=== PATIENT | male | born 1950 | race Caucasian/White ===

== ENCOUNTER 2023-07-04 06:04 | Emergency (ER) | payer OTHER ==
--- OUTSIDE RECORDS SUMMARY | 2023-07-04 06:06 | XMS REPORT | Continuity of Care Document ---
:1950 Author Organization [facility] t Address [address] [place] [address] [place] [id number] Care Team Providers Name Role Phone TAHIR JOSHUAFlowerESTELLE Primary Care Physician Unavailable JOHN SULTANA Attending Clinician Unavailable ALVERTO WYNN Attending Clinician Unavailable ALVERTO WYNN Attending Clinician Unavailable Nurse, Ang Db Attending Clinician Unavailable Wood Lawton MD Attending Clinician WOOD LAWTON Attending Clinician Unavailable WOOD LAWTON Attending Clinician Unavailable Doctor Unassigned, [place] Attending Clinician Unavailable SIERRA DIEHL Attending Clinician Unavailable John Sultana MD Attending Clinician Only, Adc Test Attending Clinician Unavailable Pob, [facility]c Lab Main Attending Clinician Unavailable JOHN SULTANA Admitting Clinician Unavailable John Sultana MD Admitting Clinician Payers Payer Name Policy Type Policy Number Effective Date Expiration Date S emi [employer] MEDICARE ADV [id number] 2019 00:00:00 Problems This patient has no known problems. Allergies, Adverse Reactions, Alerts Allergy Allergy Status Severity Reaction(s) Onset Inactive Treating Comm ents Source Name Type Date Date Clinician NO KNOWN Drug Active Univers ALLERGIE Class ity of [facility] Social History Social Habit Start Date Stop Date Quantity Comments Source [facility] Sexual orientation Univer sity [facility] History of Social 2023-03-29 2023-03-29 Univers ity of function 00:00:00 00:00:00 [facility] Tobacco use and 2023-03-29 2023-03-29 Smokeless Universit y of exposure 00:00:00 00:00:00 tobacco non-user [facility] Exposure to 2020-03-31 2020-04-30 Not sure [facility]-CoV-2 (event) 00:00:00 11:05:00 [facility] Sex Ass[birth year] Universit y of 00:00:00 00:00:00 [facility] Smoking Status Start Date Stop Date Source Unknown if ever smoked Universit y of [facility] Never smoked tobacco [facility] Medications Ordered Filled Start Stop Current Ordering Indication Dosage Frequency Signature Comments Components Source Medication Medication Date Date Medication? Clinician (SIG) Name Name triamcinolo 2022- No [id number] 40mg Univers ne 04-19 9108 ity of acetonide 21:30: 20:17 [place] (KENALOG) 00 :00 Medical injection Branch 40 mg triamcinolo 2022-0 2022- No [id number] 40mg 40 mg, Univers ne 04-19 9108 Intramuscu ity of acetonide 21:30: 20:17 [place] ONCE, [place] (KENALOG[place] 00 :00 1 dose, On Medi ginny injection Mon Branch 40 mg 04/19/23 at 1630, Routine triamcinolo 2022-0 2022- No [id number] 40mg Univers ne 04-19 9108 ity of acetonide 21:30: 20:17 [place] (KENALOG) 00 :00 Medical injection Branch 40 mg triamcinolo 2022-0 3- No [id number] 40mg 40 mg, Univers ne 04-19 9108 Intramuscu ity of acetonide 21:30: 20:17 [place], ONCE, [place] (KENALOG) 00 :00 1 dose, On Medi ginny injection Mon Branch 40 mg 04/19/23 at 1630, Routine methylPREDN 3-0 Yes [id number] 84mg Take 21 Univers ISolone 7-31 tablets by ity of (MEDROL, 00:00: mouth [place] FERNANDO,) 4 mg 00 SEE-INSTRU Med ical tablets CTIONS. Branch follow package directions methylPREDN 3-0 Yes [id number] 84mg Take 21 Univers ISolone 7-31 tablets by ity of (MEDROL, 00:00: mouth [place] FERNANDO,) 4 mg 00 SEE-INSTRU Med ical tablets CTIONS. Branch follow package directions methylPREDN 2023-0 Yes [id number] 84mg Take 21 Univers ISolone 7-31 tablets by ity of (MEDROL, 00:00: mouth [place] FERNANDO,) 4 mg 00 SEE-INSTRU Med ical tablets CTIONS. Branch follow package directions methylPREDN 2023-0 Yes [id number] 84mg Take 21 Univers ISolone 7-31 tablets by ity of (MEDROL, 00:00: mouth [place] FERNANDO,) 4 mg 00 SEE-INSTRU Med ical tablets CTIONS. Branch follow package directions methylPREDN 2023-0 Yes [id number] 84mg Take 21 Univers ISolone 7-31 tablets by ity of (MEDROL, 00:00: mouth [place] FERNANDO,) 4 mg 00 SEE-INSTRU Med ical tablets CTIONS. Branch follow package directions methylPREDN 2023-0 Yes [id number] 84mg Take 21 Univers ISolone 7-31 tablets by ity of (MEDROL, 00:00: mouth [place] FERNANDO,) 4 mg 00 SEE-INSTRU Med ical tablets CTIONS. Branch follow package directions methylPREDN 2023-0 Yes [id number] 84mg Take 21 Univers ISolone 7-31 4105 tablets by ity of (MEDROL, 00:00: mouth [place] FERNANDO,) 4 mg 00 SEE-INSTRU Med ical tablets CTIONS. Branch follow package directions methylPREDN 2023-0 Yes [id number] 84mg Take 21 Univers ISolone 7-31 4105 tablets by ity of (MEDROL, 00:00: mouth [place] FERNANDO,) 4 mg 00 SEE-INSTRU Med ical tablets CTIONS. Branch follow package directions methylPREDN 2023-0 Yes [id number] 84mg Take 21 Univers ISolone 7-31 4105 tablets by ity of (MEDROL, 00:00: mouth [place] FERNANDO,) 4 mg 00 SEE-INSTRU Med ical tablets CTIONS. Branch follow package directions methylPREDN 2023-0 Yes [id number] 84mg Take 21 Univers ISolone 7-31 4105 tablets by ity of (MEDROL, 00:00: mouth [place] FERNANDO,) 4 mg 00 SEE-INSTRU Med ical tablets CTIONS. Branch follow package directions methylPREDN 2023-0 Yes [id number] 84mg Take 21 Univers ISolone 7-31 4105 tablets by ity of (MEDROL, 00:00: mouth [place] FERNANDO,) 4 mg 00 SEE-INSTRU Med ical tablets CTIONS. Branch follow package directions methylPREDN 0 Yes [id number] 84mg Take 21 Univers ISolone 7-31 4105 tablets by ity of (MEDROL, 00:00: mouth [place] FERNANDO,) 4 mg 00 SEE-INSTRU Med ical tablets CTIONS. Branch follow package directions simvastatin 2019-0 Yes 20mg Take 20 mg Univers 20 mg 05-01 by mouth ity of tablet 20:39: at [place] 14 bedtime. Medical Branch gabapentin 0 Yes 600mg Take 600 Un jordi 600 mg 05-01 mg by ity of tablet 20:39: mouth [place] 14 daily. Medical Branch water for 0 Yes PRN, Univers irrigation 05-01 Starting ity o f irrigation 19:55: 05/01/20 [place] solution 00 at 1455, Medical Until Branch Discontinu ed, Routine, Intra-op sodium 2019-0 Yes PRN, Univers chloride 05-01 Starting ity of (NS) 19:55: 05/01/20 [place] injection 00 at 1455, Medica l Until Branch Discontinu ed, Routine, Intra-op gentamicin 2019-0 Yes PRN, Univers injection 05-01 Starting ity of 19:54: 05/01/20 [place] 00 at 1454, Medical Until Branch Discontinu ed, MONICO, Intra-op neomycin-po 2019-0 Yes PRN, Univer s lymyxin-dex 05-01 Starting ity of amethasone 19:54: 05/01/20 [place] (MAXITROL) 00 at 1454, Medic al 3.5 Until Branch mg/g-10,000 Discontinu unit/g-0.1 ed, % Routine, ophthalmic Intra-op ointment EPINEPHrine 2019-0 Yes PRN, Univer s 1:1,000 (1 05-01 Starting ity o f mg/mL) 19:53: 05/01/20 [place] (ADRENALIN) 00 at 1453, Medi ginny injection Until Branch Discontinu ed, Routine, Intra-op DUOVISC 2019-0 Yes PRN, Univers (DUOVISC 05-01 Starting ity of VISCO 19:53: 05/01/20 [place] ELASTIC) 3 00 at 1453, Medic al %-4 %(0.5 Until Branch mL) 1 % Discontinu (0.55 mL) ed, intraocular Routine, injection Intra-op dexamethaso 2020-0 Yes PRN, Univer s ne 05-01 Starting ity of (DECADRON 19:53: 05/01/[place] PHOSPHATE) 00 at 1453, Medic al injection Until Branch Discontinu ed, Routine, Intra-op ceFAZolin 2020-0 Yes PRN, Univers (ANCEF) 05-01 Starting ity of injection 19:53: 05/01/[place] 00 at 1453, Medical Until Branch Discontinu ed, MONICO, Intra-op carbachoL 2019-0 Yes PRN, Univers (MIOSTAT) 05-01 Starting ity of 0.01 % 19:53: 05/01/20 [place] intraocular 00 at 1453, Medi ginny injection Until Branch Discontinu ed, Routine, Intra-op balanced 2019-0 Yes PRN, Univers salt irrig 05-01 Starting ity o f soln comb1 19:52: 05/01/20 [place] (BSS PLUS) 00 at 1452, Medic al ophthalmic Until Branch solution Discontinu 500 mL bag ed, Routine, Intra-op Hyaluronida 2019-0 Yes PRN, [facility] s se, Human 05-01 Starting ity of Recomb. 19:39: 05/01/20 [place] (HYLENEX[place] 00 at 1439, Medica l injection Until Branch Discontinu ed, Routine, Intra-op eye block 2019-0 Yes PRN, Univers syringe 11 05-01 Starting ity o f mL 19:39: 05/01/20 [place] 00 at 1439, Medical Until Branch Discontinu ed, Intra-op mydriatic 0 2020- No .5mL 0.5 mL, Univ ers #5 05-01 Right Eye, ity of ophthalmic 17:45: 17:39 ONCE, 1 Giancar[place] as solution 00 :00 dose, Wed Medica l 0.5 mL 05/01/20 at Branch syringe 1245, Routine lactated 0 2020- No 1000mL at 20 Unive rs ringers IV 05-01 mL/hr, ity of infusion 17:45: 17:44 1,000 mL, [place] as 1,000 mL 00 :00 IV Medical Infusion, Branch ONCE, 1 dose, 05/01/20 at 1245, Routine, DSU Pre-op simvastatin 2020-0 Yes 20mg Take 20 mg Univers 20 mg 9-02 by mouth ity of tablet 15:39: at [place] 14 bedtime. Medical Branch gabapentin 2020-0 Yes 600mg Take 600 Un jordi 600 mg 9-02 mg by ity of tablet 15:39: mouth [place] 14 daily. Medical Branch simvastatin 2020-0 Yes 20mg Take 20 mg Univers 20 mg 9-02 by mouth ity of tablet 15:39: at [place] 14 bedtime. Medical Branch gabapentin 2020-0 Yes 600mg Take 600 Un jordi 600 mg 9-02 mg by ity of tablet 15:39: mouth [place] 14 daily. Medical Branch simvastatin 2020-0 Yes 20mg Take 20 mg Univers 20 mg 9-02 by mouth ity of tablet 15:39: at [place] 14 bedtime. Medical Branch gabapentin 2020-0 Yes 600mg Take 600 Un jordi 600 mg 9-02 mg by ity of tablet 15:39: mouth [place] 14 daily. Medical Branch simvastatin 2020-0 Yes 20mg Take 20 mg Univers 20 mg 9-02 by mouth ity of tablet 15:39: at [place] 14 bedtime. Medical Branch gabapentin 2020-0 Yes 600mg Take 600 Un jordi 600 mg 9-02 mg by ity of tablet 15:39: mouth [place] 14 daily. Medical Branch simvastatin 2020-0 Yes 20mg Take 20 mg Univers 20 mg 9-02 by mouth ity of tablet 15:39: at [place] 14 bedtime. Medical Branch gabapentin 2020-0 Yes 600mg Take 600 Un jordi 600 mg 9-02 mg by ity of tablet 15:39: mouth [place] 14 daily. Medical Branch simvastatin 2020-0 Yes 20mg Take 20 mg Univers 20 mg 9-02 by mouth ity of tablet 15:39: at [place] 14 bedtime. Medical Branch gabapentin 2020-0 Yes 600mg Take 600 Un jordi 600 mg 9-02 mg by ity of tablet 15:39: mouth [place] 14 daily. Medical Branch simvastatin 2020-0 Yes 20mg Take 20 mg Univers 20 mg 9-02 by mouth ity of tablet 15:39: at [place] 14 bedtime. Medical Branch gabapentin 2020-0 Yes 600mg Take 600 Un jordi 600 mg 9-02 mg by ity of tablet 15:39: mouth [place] 14 daily. Medical Branch simvastatin 2020-0 Yes 20mg Take 20 mg Univers 20 mg 9-02 by mouth ity of tablet 15:39: at [place] 14 bedtime. Medical Branch gabapentin 2020-0 Yes 600mg Take 600 Un jordi 600 mg 9-02 mg by ity of tablet 15:39: mouth [place] 14 daily. Medical Branch simvastatin 2020-0 Yes 20mg Take 20 mg Univers 20 mg 9-02 by mouth ity of tablet 15:39: at [place] 14 bedtime. Medical Branch gabapentin 2020-0 Yes 600mg Take 600 Un jordi 600 mg 9-02 mg by ity of tablet 15:39: mouth [place] 14 daily. Medical Branch simvastatin 2020-0 Yes 20mg Take 20 mg Univers 20 mg 9-02 by mouth ity of tablet 15:39: at [place] 14 bedtime. Medical Branch gabapentin 2020-0 Yes 600mg Take 600 Un jordi 600 mg 9-02 mg by ity of tablet 15:39: mouth [place] 14 daily. Medical Branch simvastatin 2020-0 Yes 20mg Take 20 mg Univers 20 mg 9-02 by mouth ity of tablet 15:39: at [place] 14 bedtime. Medical Branch gabapentin 2020-0 Yes 600mg Take 600 Un jordi 600 mg 9-02 mg by ity of tablet 15:39: mouth [place] 14 daily. Medical Branch simvastatin 2020-0 Yes 20mg Take 20 mg Univers 20 mg 9-02 by mouth ity of tablet 15:39: at [place] 14 bedtime. Medical Branch gabapentin 2020-0 Yes 600mg Take 600 Un jordi 600 mg 9-02 mg by ity of tablet 15:39: mouth [place] 14 daily. Medical Branch simvastatin 2020-0 Yes 20mg Take 20 mg Univers 20 mg 9-02 by mouth ity of tablet 15:39: at [place] 14 bedtime. Medical Branch gabapentin 2020-0 Yes 600mg Take 600 Un jordi 600 mg 9-02 mg by ity of tablet 15:39: mouth [place] 14 daily. Medical Branch simvastatin 2020-0 Yes 20mg Take 20 mg Univers 20 mg 9-02 by mouth ity of tablet 15:39: at [place] 14 bedtime. Medical Branch gabapentin 2020-0 Yes 600mg Take 600 Un jordi 600 mg 9-02 mg by ity of tablet 15:39: mouth [place] 14 daily. Medical Branch gabapentin 2020-0 Yes 600mg Take 600 Un jordi 600 mg 8-31 mg by ity of tablet 15:32: mouth [place] 22 daily. Medical Branch gabapentin 2020-0 Yes 600mg Take 600 Un jordi 600 mg 8-31 mg by ity of tablet 15:32: mouth [place] 22 daily. Medical Branch simvastatin 2020-0 Yes 20mg Take 20 mg Univers 20 mg 8-31 by mouth ity of tablet 15:29: at [place] 26 bedtime. Medical Branch simvastatin 2020-0 Yes 20mg Take 20 mg Univers 20 mg 8-31 by mouth ity of tablet 15:29: at [place] 26 bedtime. [facility] Branch Immunizations Ordered Filled Date Status Comments Source Immunization Name Immunization Name SARS-COV-2 COVID-19 2020-10-30 Completed Unive rsity of PFIZER VACCINE 00:00:00 [facility] SARS-COV-2 COVID-19 2020-10-30 Completed Unive rsity of PFIZER VACCINE 00:00:00 [facility] SARS-COV-2 COVID-19 2020-10-30 Completed Unive rsity of PFIZER VACCINE 00:00:00 [facility] SARS-COV-2 COVID-19 2020-10-30 Completed Unive rsity of PFIZER VACCINE 00:00:00 [facility] SARS-COV-2 COVID-19 2020-10-30 Completed Unive rsity of PFIZER VACCINE 00:00:00 [facility] SARS-COV-2 COVID-19 2020-10-30 Completed Unive rsity of PFIZER VACCINE 00:00:00 [facility] SARS-COV-2 COVID-19 2020-10-09 Completed Unive rsity of PFIZER VACCINE 00:00:00 [facility] SARS-COV-2 COVID-19 2020-10-09 Completed Unive rsity of PFIZER VACCINE 00:00:00 [facility] SARS-COV-2 COVID-19 2020-10-09 Completed Unive rsity of PFIZER VACCINE 00:00:00 [facility] SARS-COV-2 COVID-19 2020-10-09 Completed Unive rsity of PFIZER VACCINE 00:00:00 [facility] SARS-COV-2 COVID-19 2020-10-09 Completed Unive rsity of PFIZER VACCINE 00:00:00 [place] Medi ginny Branch SARS-COV-2 COVID-19 2020-10-09 Completed Unive rsity of PFIZER VACCINE 00:00:00 [facility] Branch SARS-COV-2 COVID-19 Unknown Completed Unive rsity of PFIZER VACCINE [facility] Branch SARS-COV-2 COVID-19 Unknown Completed Unive rsity of PFIZER VACCINE [facility] Branch SARS-COV-2 COVID-19 Unknown Completed Unive rsity of PFIZER VACCINE [facility] Branch SARS-COV-2 COVID-19 Unknown Completed Unive rsity of PFIZER VACCINE [facility] Branch SARS-COV-2 COVID-19 Unknown Completed Unive rsity of PFIZER VACCINE [facility] Branch SARS-COV-2 COVID-19 Unknown Completed Unive rsity of PFIZER VACCINE [facility] Branch Influenza Virus Unknown Completed Universit y of Vaccine,quad [place] Medica l Im,preserve Free Branch 65+ (FLUAD) SARS-COV-2 COVID-19 Unknown Completed Unive rsity of PFIZER VACCINE [facility] Branch SARS-COV-2 COVID-19 Unknown Completed Unive rsity of PFIZER VACCINE [facility] Branch Influenza Virus Unknown Completed Universit y of Vaccine,quad [place] Medica l Im,preserve Free Branch 65+ (FLUAD) SARS-COV-2 COVID-19 Unknown Completed Unive rsity of PFIZER VACCINE [facility] Branch SARS-COV-2 COVID-19 Unknown Completed Unive rsity of PFIZER VACCINE [facility] Branch Influenza Virus Unknown Completed Universit y of Vaccine,quad [place] Medica l Im,preserve Free Branch 65+ (FLUAD) SARS-COV-2 COVID-19 Unknown Completed Unive rsity of PFIZER VACCINE [facility] Branch SARS-COV-2 COVID-19 Unknown Completed Unive rsity of PFIZER VACCINE [facility] Branch Influenza Virus Unknown Completed Universit y of Vaccine,quad [place] Medica l Im,preserve Free Branch 65+ (FLUAD) SARS-COV-2 COVID-19 Unknown Completed Unive rsity of PFIZER VACCINE [facility] Branch SARS-COV-2 COVID-19 Unknown Completed Unive rsity of PFIZER VACCINE [facility] Branch Influenza Virus Unknown Completed Universit y of Vaccine,quad [place] Medica l Im,preserve Free Branch 65+ (FLUAD) Vital Signs Vital Name Observation Time Observation Value Comments Source Systolic blood 2023-06-16 20:43:00 138 mm[Hg] Univer sity of pressure [place] [facility] Diastolic blood 2023-06-16 20:43:00 84 mm[Hg] Unive rsity of pressure [place] [facility] Heart rate 2023-06-16 20:43:00 71 /min Universi ty of [place] [facility] Body height 2023-06-16 20:43:00 241.3 cm Universi ty of [place] [facility] Body weight 2023-06-16 20:43:00 78.245 kg Universi ty of [place] [facility] BMI 2023-06-16 20:43:00 13.44 kg/m2 Universi ty of [place] [facility] Body height 2023-04-19 19:59:00 157.5 cm Universi ty of [place] [facility] Body weight 2023-04-19 19:59:00 79.833 kg Universi ty of [facility] BMI 2023-04-19 19:59:00 32.19 kg/m2 Universi ty of [facility] Branch Systolic blood 2023-03-29 20:06:00 134 mm[Hg] Univer sity of pressure [facility] Branch Diastolic blood 2023-03-29 20:06:00 79 mm[Hg] Unive rsity of pressure [facility] Heart rate 2023-03-29 20:06:00 80 /min Universi ty of [place] [facility] Body height 2023-03-29 20:06:00 157.5 cm Universi ty of [place] [facility] Body weight 2023-03-29 20:06:00 80.241 kg Universi ty of [place] [facility] BMI 2023-03-29 20:06:00 32.36 kg/m2 Universi ty of [facility] Branch Systolic blood 2020-05-01 20:10:00 141 mm[Hg] Univer sity of pressure [place] [facility] Diastolic blood 2020-05-01 20:10:00 87 mm[Hg] Unive rsity of pressure [facility] Branch Heart rate 2020-05-01 20:10:00 56 /min Universi ty of [facility] Branch Respiratory rate 2020-05-01 20:10:00 18 /[facility] in 2020-05-01 20:10:00 98 /min University Arterial blood by [facility] Pulse oximetry Branch Body temperature 2020-05-01 20:03:00 36.61 Neda Univ ersity of [place] [facility] Body height 2020-04-29 15:00:00 177.8 cm [facility] Medical Branch Body weight 2020-04-29 15:00:00 90.719 kg [facility] Medical Branch BMI 2020-04-29 15:00:00 28.70 kg/m2 [facility] Medical Branch Procedures Procedure Date / Time Performing Clinician Source Performed FLU 2023-06-16 21:15:41 Doctor Holley, [facility] VACC(),65+YR,0.5 [place] Medica l Branch ML,IM,ADJUVANTED,QUAD(FLUA D) REFERRAL- REQUEST/RESPONSE 2023-06-16 05:01:00 Doctor Holley , [facility] [place] [facility] Branch CONSENT/REFUSAL FOR 2023-04-19 19:45:33 Doctor Holley, [facility] DIAGNOSIS AND TREATMENT [place] [facility] ASSIGNMENT OF BENEFITS 2020-04-30 16:06:34 Doctor Holley, Jorge [facility] [place] [facility] CBC WITH DIFF 2020-04-22 16:45:00 John Sultana [facility] Medical Branch NO SHOW OR MISSED 2020-04-22 16:26:26 Doctor Holley, [facility] APPOINTMENT POLICY [place] [facility] Bran h ACKNOWLEDGEMENT [facility] PATIENT FINANCIAL 2020-04-22 16:26:00 Doctor Holley, Jorge [facility] POLICY [place] [facility] NOTICE OF BILLING 2020-04-22 16:25:27 Doctor Holley, [facility] PRACTICES FOR MEDICARE [place] [facility] B ranch PATIENTS NOTICE OF PRIVACY 2020-04-22 16:24:34 Doctor Holley, [facility] PRACTICES [place] [facility] CONSENT/REFUSAL FOR 2020-04-22 16:23:46 Doctor Holley [facility] DIAGNOSIS AND TREATMENT [place] [facility] ASSIGNMENT OF BENEFITS 2020-04-22 16:23:18 Doctor Unassharini, [facility] [place] [facility] CONSENT/REFUSAL FOR 2020-04-22 16:22:51 Doctor Holley [facility] DIAGNOSIS AND TREATMENT [place] [facility] ASSIGNMENT OF BENEFITS 2020-04-22 16:22:23 Doctor Unassigned, [facility] [place] [facility] PHYSICIAN ORDERS 2020-04-22 05:01:00 Doctor Jacob Babb [facility] [place] [facility] Encounters Start End Encounter Admission Attending Care Care Encounter Source Date/Time Date/Time Type Type Clinicians Facility Department ID 2021-06-27 Outpatient Hawa BRENDAN [facility] JESSICA [id number] Univers 17:56:05 JOHN tom [facility] 2021-06-27 Outpatient Hawa BRENDAN [facility] JESSICA [id number] Univers 14:35:05 JOHN tom [facility] 2023-06-16 2023-06-16 Imm/Inj Nurse, Raymond Mendosa [facility] [id number] Univers 16:00:00 16:20:00 Visit Wood Lawton [facility] [id number] ity of [place] 4.2.7.2.686 Giancarlo as SARWAT?BLEA [id number] [facility] [address] MEDICAL OFFICE BUILDING 2023-06-16 2023-06-16 Outpatient R WOOD LAWTON [facility] [id number] Univers 15:45:00 15:56:13 WOOD LAWTON [facility] 2023-06-16 2023-06-16 Office [facility] [id number] Univers 15:45:00 15:56:13 Visit Wood BCKSTGR [id number] it y of [place] 4.2.7.2.686 Giancarlo as SARWAT?BLEA [id number] [facility] [address] MEDICAL OFFICE BUILDING 2023-06-16 2023-06-16 Orders Doctor CURRAN [id number] Univers 00:00:00 00:00:00 Only Unassigned, RENATE 350.1.13.10 ity of [place] [facility] 4.2.7.2.686 Gian[place]lo as [phone] [address] 2023-04-19 2023-04-19 Outpatient R MICH [facility] [id number] Univers 15:15:00 16:20:27 WOOD tom [facility] 2023-04-19 2023-04-19 Office Mich [facility] [id number] Univers 15:15:00 16:20:27 Visit Wood FAIRCHILD [id number] it y of [place] 4.2.7.2.686 Giancarlo as SARWAT?BLEA [id number] Pa alvin BREWSTER [address] MEDICAL OFFICE [facility] 2023-04-19 2023-04-19 Orders Doctor BINA [id number] Univers 00:00:00 00:00:00 Only Unassigned, RENATE [id number] ity of [place] [facility] 4.2.7.2.686 Giancarlo as [id number] [facility] [address] 2023-04-16 2023-04-16 Patient Doctor BINA [id number] Univers 00:00:00 00:00:00 Secure Msg Unassigned, RENATE [id number] ity of [place] [facility] 4.2.7.2.686 Giancarlo as [id number] [facility] [address] 2023-03-29 2023-03-29 Hospital [facility] [id number] Univers 15:07:30 23:59:00 Encounter Wood FAIRCHILD 350.1.13.10 ity of [facility] 4.2.7.2.686 Giancarlo as SARWAT?BLEA [phone] Pa jamelkofi BREWSTER [address] [facility] OFFICE [facility] 2023-03-29 2023-03-29 Outpatient R WOOD LAWTON [facility] [id number] Univers 15:30:00 15:39:21 WOOD LAWTON [facility] 2023-03-29 2023-03-29 Office [facility] [id number] Univers 15:30:00 15:39:21 Visit Wood Williamson [facility] [id number] it y of [place] 4.2.7.2.686 Giancarlo as SARWAT?BLEA [id number] Pa jamelkofi BREWSTER [address] MEDICAL OFFICE [facility] 2021-05-23 2021-05-23 Patient Doctor BINA [id number] Univers 00:00:00 00:00:00 Secure Msg Unassigned, RENATE [id number] ity of [place] [facility] 4.2.7.2.686 Giancarlo as [id number] [facility] 019 Branch 2020-10-30 2020-10-30 Outpatient Hawa DIEHL [facility] [id number] Univers 10:30:00 10:30:00 [place] ity [facility] 2020-10-09 2020-10-09 Outpatient Hawa DIEHL [facility] [id number] Univers 10:30:00 10:30:00 [place] ity [facility] 2020-05-01 2020-05-01 Hospital Brendan [facility] [id number] Univers 12:29:00 15:30:00 Encounter John Powell 350.1.13.10 it[place] 4[place]2.7.2.686 [place] [phone] [facility] [address] 2020-04-30 2020-04-30 Laboratory Only, Adc Test [facility] 1.2.840. 114 [id number] Univers 11:06:04 11:21:04 Only BrendanJohn 350.1.13.1 0 [place] [phone] [facility] [address] 2020-04-30 2020-04-30 Outpatient R BRENDAN [facility] [id number] Univers 11:15:00 11:15:00 JOHN [facility] 2020-04-30 2020-04-30 Orders Doctor BINA [id number] Univers 00:00:00 00:00:00 Only Unassigned, RENATE 350.1.13.10 ity of [place] [facility] 4.2.7.2.686 Giancarlo as [phone] [facility] [address] 2020-04-30 2020-04-30 Patient Doctor PATRICE [id number] Univers 00:00:00 00:00:00 Secure Msg Unassigned, SIMS 350.1.13.10 ity [place] [phone] [facility] [address] 2020-04-22 2020-04-22 [place]row Secretary Jagjit, Adc Lab Main [facility] 1.2.8 40.114 [id number] Univers 11:30:19 11:45:19 Visit John Sultana 350.1.13.1 0 tom [place] 4.2.7.2.686 Denis Knox [phone] Pa dical [address] 2020-04-22 2020-04-22 Outpatient R BRENDAN [facility] [id number] Univers 11:45:00 11:45:00 JOHN [facility] Results Test Description Test Time Test Comments Results Result Comments Source CBC WITH DIFF 2020-04-22 16:53:00 Test Item Value Reference Range Interpretation Comme nts WBC (test code = 6690-2) See_Comment [A utomated message] The system which ge nerated this result transmit mark reference range: 4.20 - 1 0.70 10*3/?L. The reference r kristopher was not used to interpr et this result as normal/abnor mal. RBC (test code = 789-8) See_Comment [Au tomated message] The system which ge nerated this result transmit mark reference range: 4.26 - 5 .52 10*6/?L. The reference r kristopher was not used to interpr et this result as normal/abnor mal. HGB (test code = 718-7) 14.7 g/dL 12.2-16.4 HCT (test code = 4544-3) 44.2 % 38.4-49.3 MCV (test code = 787-2) 98.2 fL 81.7-95.6 H MCH (test code = 785-6) 32.7 pg 26.1-32.7 MCHC (test code = 786-4) 33.3 g/dL 31.2-35 RDW-SD (test code = 62131-1) 47.5 fL 38.5-51.6 RDW-CV (test code = 788-0) 13.2 % 12.1-15.4 PLT (test code = 777-3) See_Comment [Au tomated message] The system which ge nerated this result transmit mark reference range: 150 - 32 8 10*3/?L. The reference range was not used to interpret th is result as normal/abnormal . MPV (test code = 98806-3) 10.9 fL 9.8-13 NRBC/100 WBC (test code = See_Comment [ Automated message] The [id number]) system which [employer] nerated this result transmit mark reference range: 0.0 - 10 .0 /100 WBCs. The reference r kristopher was not used to interpr et this result as normal/abnor mal. NRBC x10^3 (test code = <0.01 See_Comment [Au tomated message] The [id number]) system which [employer] nerated this result transmit mark reference range: 10*3/?L. The reference range was not u sed to interpret this result as normal/abnormal . GRAN MAT (NEUT) % (test code 60.5 % = 770-8) IMM GRAN % (test code = 0.00 % [id number]) LYMPH % (test code = 736-9) 28.3 % MONO % (test code = 5905-5) 8.3 % EOS % (test code = 713-8) 2.5 % BASO % (test code = 706-2) 0.4 % GRAN MAT x10^3(ANC) (test 2.90 10*3/uL 1.99-6.95 code = [id number]) IMM GRAN x10^3 (test code = <0.03 0-0.06 [id number]) LYMPH x10^3 (test code = 1.36 10*3/uL 1.09-3.23 731-0) MONO x10^3 (test code = 0.40 10*3/uL 0.36-1.02 742-7) EOS x10^3 (test code = 0.12 10*3/uL 0.06-0.53 711-2) BASO x10^3 (test code = <0.03 0.01-0.09 704-7) Lab Interpretation (test Abnormal code = 66937-9) [facility]
[2023-07-04 07:05] LABS: Albumin 3.4 g/dL (3.4-5.0); Bilirubin Direct 0.1 mg/dL (0-0.2); Bilirubin Indirect, Calculated 0.4 mg/dL (0.2-0.8); Bilirubin Total 0.5 mg/dL (0.2-1.0); Protein, Total 6.7 g/dL (6.4-8.2); Troponin High Sensitivity 4.9 pg/mL (<58.9)
[2023-07-04 07:06] LABS: Magnesium 2.3 mg/dL (1.6-2.4); Potassium 4.1 mEq/L (3.5-5.1)
[2023-07-04 07:22] LABS: Absolute Lymphocytes (CBC) 0.9 K/uL (0.7-4.9); Hematocrit 36.7 % (39.6-49.0); Lymphocytes % 17.5 % (15.3-44.8); MCV 100.4 fL (80-100); MPV 8.3 fL (7.6-11.3); Platelets 216 thou/uL (152-406); Protime INR 0.87; RBC Red Blood Cell Count 3.66 M/uL (4.33-5.43)
--- NOTE | 2023-07-04 08:01 | RAD REPORT ---
EXAM DESCRIPTION: Sarah Single View07/04/2023 6:55 am CLINICAL HISTORY: syncope COMPARISON: No comparisons TECHNIQUE: Portable AP view of the chest. FINDINGS: The lungs are clear. No pneumothorax or effusion. Tortuosity of the thoracic aorta. The c ardiomediastinal contours are otherwise unremarkable. IMPRESSION: No acute cardiopulmonary process.
--- NOTE | 2023-07-04 08:33 | RAD REPORT ---
EXAM DESCRIPTION: CT - CTHCSPWOC - 07/04/2023 6:50 am CLINICAL HISTORY: Trauma, head and neck injury. fall, head injury COMPARISON: No comparisons TECHNIQUE: Axial thin cut noncontrast CT images of the head were obtained. Axial thin cut noncontrast CT images of the cervical spine were obtained. Multiplanar reformatted images were generated and reviewed. All CT scans are performed using dose optimization technique as appropriate and may include automated exposure control or mA/KV adjustment according to patient size. FINDINGS: CT HEAD WITHOUT CONTRAST: No acute hemorrhage, hydrocephalus or extra-axial collection is identified.No areas of brain edema or midline shift. The paranasal sinuses and mastoids are clear.The calvarium is intact. CT CERVICAL SPINE WITHOUT CONTRAST: No fracture or subluxation. Xtgd-ry-agujurhi multilevel degenerative changes with disc height loss mo st pronounced at C5-6 and C6-7. Moderate to severe bilateral neural foraminal narrowing at C5-6, and similar left neural foraminal narrowing at C6-7. Moderate right neural foraminal narrowing at C6-7. N o prevertebral soft tissues swelling is identified. IMPRESSION: No acute traumatic intracranial or cervical spine findings. Multilevel cervical spine degenerative changes as above.
--- NOTE | 2023-07-04 08:49 | EDPHYS ---
Physician Documentation [facility] Name: Clarke Rodgers Age: 73 yrs Sex: Male : 1950 Arrival Date: 07/04/2023 Time: 06:04 Bed 6 Private MD: ED Physician Edson Byrne HPI: 07/04 06:57 This 73 yrs old Male presents to ER via EMS with complaints of syncope and sp4 fall. . 06:57 73-year-old male with history of hypercholesterolemia carpal tunnel syndrome presents sp4 with acute fall after syncopal episode at home. Patient went to the bathroom and felt unwell syncopized fell on the floor backwards was found by his laying on the floor unresponsive for several seconds. Patient has a long history of prior syncope. Patient reports posterior headache after a fall. Historical: - Allergies: 06:13 No Known Allergies; vc1 - Home Meds: 06:13 Lipitor Oral [Active]; gabapentin oral [Active]; vc1 - PMHx: 06:13 Hypercholesterolemia; carpal tunnel; vc1 - PSHx: 06:13 None; vc1 - Immunization history:: Client reports receiving the 1st dose of the Covid vaccine. - Social history:: Smoking status: Patient denies any tobacco usage or history of. - Family history:: not pertinent. ROS: 06:57 Constitutional: Positive for dizziness positive fall positive syncope positive headache sp4 06:57 All other systems are negative, Exam: 06:57 Constitutional: This is a well developed, well nourished patient who is awake, alert, sp4 and in no acute distress. Head/Face: Normocephalic, atraumatic. Eyes: Pupils equal round and reactive to light, extra-ocular motions intact. Lids and lashes normal. Conjunctiva and sclera are not injected. Cornea within normal limits. Periorbital areas with no swelling, redness, or edema. ENT: Nares patent. No nasal discharge, no septal abnormalities noted. Tympanic membranes are normal and external auditory canals are clear. Oropharynx with no redness, swelling, or masses, exudates, or evidence of obstruction, uvula midline. Mucous membranes moist. Neck: Trachea midline, no thyromegaly or masses palpated, and no cervical lymphadenopathy. Supple, full range of motion without nuchal rigidity, or vertebral point tenderness. Chest/axilla: Normal chest wall appearance and motion. Nontender with no deformity. No lesions are appreciated. Cardiovascular: Regular rate and rhythm with a normal S1 and S2. No gallops, murmurs, or rubs. Normal PMI, no JVD. No pulse deficits. Respiratory: Lungs have equal breath sounds bilaterally, clear to auscultation and percussion. No rales, rhonchi or wheezes noted. No increased work of breathing, no retractions or nasal flaring. Abdomen/GI: Soft, non-tender, with normal bowel sounds. No distension or tympany. No guarding or rebound. No evidence of tenderness throughout. Back: No spinal tenderness. No costovertebral tenderness. Skin: Warm, dry with normal turgor. Normal color with no rashes, no lesions, and no evidence of cellulitis. MS/ Extremity: Pulses equal, no cyanosis. Neurovascular intact. Full, normal range of motion. Neuro: Awake and alert, GCS 15, oriented to person, place, time, and situation. Cranial nerves II-XII grossly intact. Motor strength 5/5 in all extremities. Sensory grossly intact. Psych: Awake, alert, with orientation to person, place and time. Behavior, mood, and affect are within normal limits 06:59 ECG was reviewed by the Attending Physician. sp4 Vital Signs: 06:09 Temp 97.4; Weight 79.38 kg; Height 5 ft. 11 in. ; Pain 3/10; vc1 06:09 BP 126 / 75; Pulse 62; Resp 12; Pulse Ox 100% ; vc1 07:15 BP 100 / 66; Pulse 58; Resp 16; Pulse Ox 100% on R/A; Pain 0/10; mb9 08:49 BP 105 / 64; Pulse 60; rn 09:02 BP 122 / 62; Pulse 62; Resp 16; Pulse Ox 100% on R/A; Pain 0/10; mb9 06:09 Body Mass Index 24.41 (79.38 kg, 180.34 cm) vc1 06:09 Pain Scale: Adult vc1 07:15 Pain Scale: Adult mb9 09:02 Pain Scale: Adult mb9 MDM: 06:22 Patient medically screened. sp4 08:47 Data reviewed: vital signs, nurses notes, lab test result(s), EKG, radiologic studies, rn CT scan, and as a result, I will discharge patient. Consideration of Admission/Observation Escalation of care including admission/observation considered. Patient declines wants to go home. Feels much better.. Counseling: I had a detailed discussion with the patient and/or guardian regarding the historical points, exam findings, and any diagnostic results supporting the discharge/admit diagnosis, lab results, radiology results, the need for outpatient follow up, to return to the emergency department if symptoms worsen or persist or if there are any questions or concerns that arise at home. Response to treatment: the patient's symptoms have markedly improved after treatment, the patient's condition has returned to base line, and as a result, I will discharge patient. Special discussion: Based on the history and exam findings, there is no indication for further emergent testing or inpatient evaluation. I discussed with the patient/guardian the need to see the primary care provider for further evaluation of the symptoms. ED course: No acute findings on work-up here including imaging. Patient states back to normal and does not feel bad at all. Patient reports got out of bed to use the bathroom got dizzy and fell down to the ground. Denies loss of consciousness. No seizure activity. Patient reports has suffered from vertigo before. Patient already feels much better denies dizziness. Still denies any focal neurological complaints. No chest pain or shortness of breath or abdominal pain. Offered admission/observation, patient declines and states will return if anything worsens. I have personally reviewed all of the results, including but not limited to blood tests and imaging deemed necessary to safely discharge this patient at this time. All results given to and printed out for patient. I personally went over all the results with the patient and answered all questions. Patient will follow-up with PCP and or specialist as discussed. Return precautions given and understood.. 07/04 06:18 Order name: Basic Metabolic Panel; Complete Time: 07: sp4 07/04 06:18 Order name: CBC with Diff; Complete Time: 07: sp4 07/04 06:18 Order name: LFT's; Complete Time: 07: sp4 07/04 06:18 Order name: Magnesium; Complete Time: 07: sp4 07/04 06:18 Order name: NT PRO-BNP; Complete Time: 07: sp4 07/04 06:18 Order name: PT-INR; Complete Time: 07:36 sp4 07/04 06:18 Order name: Troponin HS; Complete Time: 07:06 sp4 07/04 06:18 Order name: XRAY Chest (1 view); Complete Time: 08:34 sp4 07/04 06:22 Order name: CT Head C Spine; Complete Time: 08:34 sp4 07/04 06:18 Order name: EKG; Complete Time: 06:19 sp4 07/04 06:18 Order name: Cardiac monitoring; Complete Time: 06:34 sp4 07/04 06:18 Order name: EKG - Nurse/Tech; Complete Time: 06:34 sp4 07/04 06:18 Order name: IV Saline Lock; Complete Time: 07:14 sp4 07/04 06:18 Order name: Labs collected and sent; Complete Time: 06:34 sp4 07/04 06:18 Order name: O2 Per Protocol; Complete Time: 06:34 sp4 07/04 06:18 Order name: O2 Sat Monitoring; Complete Time: 06:34 sp4 EC:59 Rate is 52 beats/min. Rhythm is regular, Sinus bradycardia. QRS [place] is Normal. MD sp4 interval is normal. QRS interval is normal. QT interval is normal. No Q waves. T waves are Normal. No ST changes noted. Interpreted by me. Reviewed by me. Administered Medications: 08:55 Drug: NS 0.9% IV 500 ml IV at bolus once Route: IV; Rate: bolus; Site: right mb9 antecubital; 09:17 Follow up: Response: No adverse reaction; IV Status: Completed infusion 9 Disposition Summary: 07/04/23 08:48 Discharge Ordered Notes: Location: Home rn Problem: new rn Symptoms: have improved rn Condition: Stable rn Diagnosis - Dizziness and giddiness rn - Fall on same level, unspecified rn - Unspecified injury of head, initial encounter rn Followup: rn - With: Private Physician - When: As needed - Reason: Recheck today's complaints, Re-evaluation by your physician Discharge Instructions: - Discharge Summary Sheet rn - Dizziness rn - Head Injury, Adult rn - Hematoma rn - Fall Prevention in the Home, Adult rn Forms: - Medication Reconciliation Form rn - Thank You Letter rn - Antibiotic lace burn out tender - Prescription Opioid Use rn - Patient Portal Instructions rn - Leadership Thank You Letter rn Signatures: [facility] Edson Moe MD MD rn Calcote, Vanessa, RN RN vc1 Michelle Velarde RN RN mb9 Edward Bingham MD MD sp4
--- NOTE | 2023-07-04 08:49 | ER ---
Nurse's Notes [facility] Name: Clarke Rodgers Age: 73 yrs Sex: Male : 1950 Arrival Date: 07/04/2023 Time: 06:04 Bed 6 Private MD: Diagnosis: Dizziness and giddiness;Fall on same level, unspecified;Unspecified injury of head, initial encounter Presentation: 07/04 06:09 Chief complaint: EMS states: He got up to go to the bathroom and fell. said she vc1 heard a loud crack and found him unconscious on the floor for about 30 seconds to 2 minutes. Coronavirus screen: Vaccine status: Patient reports receiving the 1st dose of the Covid vaccine. Pfizer Client denies travel out of the [place] in the last 14 days. At this time, the client does not indicate any symptoms associated with coronavirus-19. Ebola Screen: Patient negative for fever greater than or equal to 101.5 degrees Fahrenheit, and additional compatible Ebola Virus Disease symptoms Patient denies exposure to infectious person. Patient denies travel to an Ebola-affected area in the 21 days before illness onset. No symptoms or risks identified at this time. Initial Sepsis Screen: Does the patient meet any 2 criteria? No. Patient's initial sepsis screen is negative. Does the patient have a suspected source of infection? No. Patient's initial sepsis screen is negative. Risk Assessment: Do you want to hurt yourself or someone else? Patient reports no desire to harm self or others. Onset of symptoms was July 04, 2023. 06:09 Method Of Arrival: EMS: [facility] vc1 06:09 Acuity: EREN 2 vc1 Triage Assessment: 06:16 General: Appears in no apparent distress. comfortable, Behavior is calm, cooperative, vc1 appropriate for age. Pain: Complains of pain in scalp Pain does not radiate. Pain currently is 3 out of 10 on a pain scale. Quality of pain is described as aching. EENT: No deficits noted. No signs and/or symptoms were reported regarding the EENT system. Neuro: Level of Consciousness is awake, alert, obeys commands, Oriented to person, place, time, situation, Appropriate for age. Cardiovascular: No deficits noted. Respiratory: Airway is patent Respiratory effort is even, unlabored, Respiratory pattern is regular, symmetrical. GI: No deficits noted. No signs and/or symptoms were reported involving the gastrointestinal system. : No deficits noted. No signs and/or symptoms were reported regarding the genitourinary system. Derm: No deficits noted. No signs and/or symptoms reported regarding the dermatologic system. Musculoskeletal: No deficits noted. No signs and/or symptoms reported regarding the musculoskeletal system. Historical: - Allergies: 06:13 No Known Allergies; vc1 - Home Meds: 06:13 Lipitor Oral [Active]; gabapentin oral [Active]; vc1 - PMHx: 06:13 Hypercholesterolemia; carpal tunnel; vc1 - PSHx: 06:13 None; vc1 - Immunization history:: Client reports receiving the 1st dose of the Covid vaccine. - Social history:: Smoking status: Patient denies any tobacco usage or history of. - Family history:: not pertinent. Screenin:15 [facility] ED Fall Risk Assessment (Adult) History of falling in the last 3 months, vc1 including since admission Yes- physiologic fall (2 pts) Confusion or Disorientation No (0 pts) Intoxicated or Sedated No (0 pts) Impaired Gait No (0 pts) Mobility Assist Device Used No (0 pt) Altered Elimination No (0 pt) Score/Fall Risk Level 0 - 2 = Low Risk Oriented to surroundings, Maintained a safe environment, Educated pt \T\ family on fall prevention, incl call for assistance when getting out of bed. Abuse screen: Denies threats or abuse. Nutritional screening: No deficits noted. Tuberculosis screening: No symptoms or risk factors identified. Assessment: 06:43 General: Appears in no apparent distress. Behavior is calm, cooperative, appropriate la4 for age. Pain: Complains of pain in right parietal area Pain does not radiate. Pain currently is 3 out of 10 on a pain scale. Quality of pain is described as aching, Pain began suddenly. Cardiovascular: No deficits noted. Reports None Denies Heart tones S1 S2 Capillary refill < 3 seconds is brisk Pulses are all present. Edema is absent. Rhythm is sinus bradycardia. Respiratory: No deficits noted. Airway is patent Breath sounds are clear bilaterally. 07:18 General: Appears in no apparent distress. comfortable, Behavior is calm, cooperative, mb9 appropriate for age. Pain: Denies pain. Neuro: Walter Agitation-Sedation Scale (RASS): 0 - Alert and Calm Level of Consciousness is awake, alert, obeys commands, Oriented to person, place, time, situation, Appropriate for age. Cardiovascular: Patient's skin is warm and dry. Respiratory: Airway is patent Respiratory effort is even, unlabored, Respiratory pattern is regular, symmetrical. GI: Abdomen is round non-distended, Bowel sounds present X 4 quads. : No signs and/or symptoms were reported regarding the genitourinary system. EENT: No signs and/or symptoms were reported regarding the EENT system. Derm: Skin is pink, warm \T\ dry. Musculoskeletal: Range of motion: intact in all extremities. 08:30 Reassessment: No changes from previously documented assessment. Patient and/or family mb9 updated on plan of care and expected duration. Pain level reassessed. Patient is alert, oriented x 3, equal unlabored respirations, skin warm/dry/pink. 08:57 Reassessment: Discharge pending completion of fluids. mb9 Vital Signs: 06:09 Temp 97.4; Weight 79.38 kg; Height 5 ft. 11 in. ; Pain 3/10; vc1 06:09 BP 126 / 75; Pulse 62; Resp 12; Pulse Ox 100% ; vc1 07:15 BP 100 / 66; Pulse 58; Resp 16; Pulse Ox 100% on R/A; Pain 0/10; mb9 08:49 BP 105 / 64; Pulse 60; rn 09:02 BP 122 / 62; Pulse 62; Resp 16; Pulse Ox 100% on R/A; Pain 0/10; mb9 06:09 Body Mass Index 24.41 (79.38 kg, 180.34 cm) vc1 06:09 Pain Scale: Adult vc1 07:15 Pain Scale: Adult mb9 09:02 Pain Scale: Adult mb9 ED Course: 06:04 Patient arrived in ED. rv1 06:13 Triage completed. vc1 06:15 Arm band placed on right wrist. vc1 06:15 Patient has correct armband on for positive identification. Placed in gown. Bed in low vc1 position. Call light in reach. Client placed on continuous cardiac and pulse oximetry monitoring. NIBP monitoring applied. 06:18 Edward Bingham MD is Attending Physician. sp4 06:34 CT Head C Spine Sent. la4 06:52 CT Head C Spine In Process Unspecified. EDMS 06:57 XRAY Chest (1 view) In Process Unspecified. EDMS 07:14 Michelle Velarde, RN is Primary Nurse. mb9 07:14 CBC with Diff Sent. mb9 07:14 PT-INR Sent. mb9 07:15 Inserted saline lock: 22 gauge in right antecubital area, using aseptic technique. mb9 Blood collected. 07:25 Attending Physician role handed off by Edward Bingham MD rn 07:25 Edson Byrne MD is Attending Physician. rn 09:02 No provider procedures requiring assistance completed. mb9 09:17 IV discontinued, intact, bleeding controlled, No redness/swelling at site. Pressure mb9 dressing applied. Administered Medications: 08:55 Drug: NS 0.9% IV 500 ml IV at bolus once Route: IV; Rate: bolus; Site: right mb9 antecubital; 09:17 Follow up: Response: No adverse reaction; IV Status: Completed infusion mb9 Medication: 06:16 VIS not applicable for this client. vc1 Outcome: 08:48 Discharge ordered by . rn 09:17 Discharged to home ambulatory, with family, mb9 09:17 Condition: stable 09:17 Discharge instructions given to patient, family, Instructed on discharge instructions, follow up and referral plans. Demonstrated understanding of instructions, follow-up care, 09:17 Patient left the ED. mb9 Signatures: Dispatcher [employer] Edson Moe MD MD rn Calcote, Vanessa RN RN vc1 Michelle Velarde, RN RN mb9 Carmen Patel rv1 Edward Bingham MD MD sp4 Mary Ayala RN RN la4 Corrections: (The following items were deleted from the chart) 09:02 09:02 BP 122 / 57; Pulse 62bpm; Resp 16bpm; Pulse Ox 100% RA; Pain 0/10, Adult; mb9 mb9
[2023-07-04] MEDS ORDERED: NA CHLORIDE 0.9% 500 ML ONE (09:06)
[2023-07-04 09:24] VITALS: TEMP 97.4; O2SAT 100
[2023-07-04 09:27] VITALS: BP 122/62
--- NOTE | 2023-07-10 14:37 | EKG ---
Test Date: 2023-07-04 Test Time: 06:06:29 Python Developer: Irish Perry MEASUREMENT RESULTS: Intervals: Rate: 52 MD: 152 QRSD: 88 QT: 434 QTc: 403 [place]: P: 65 MD: 152 QRS: -10 T: 63 INTERPRETIVE STATEMENTS: Sinus bradycardia Nonspecific ST abnormality Abnormal ECG No previous ECG available for comparison Electronically Signed On 07-10-23 14:19:02 [employer]YSTEM ECOLOGY PROFESSOR by Omar Kraft
== END 2023-07-04 09:17 | disposition home or self-care (01) ==
LOC: ER 06:04
DX: R42 Dizziness and giddiness (principal); S09.90XA Unspecified injury of head, initial encounter; W18.30XA Fall on same level, unspecified, initial encounter; E78.00 Pure hypercholesterolemia, unspecified
CPT/HCPCS: 93005; 85025; 80048; 36415; 83735; 85610; 80076; 84484; 83880; 70450; 72125; 71045; 99284; J7040